=== PATIENT | male | born 1990 | race Caucasian/White ===

== ENCOUNTER 2016-08-02 17:32 | Emergency (ER) | payer OTHER ==
[2016-08-02] MEDS ORDERED: IBUPROFEN 800 MG TABLET PO ONE (18:12)
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
[2016-08-02] MEDS ORDERED: KETOROLAC TROMETHAMINE 60 MG/2 ML SDV IM ONE (19:18)
[2016-08-02 20:34] VITALS: BP 141/76
== END 2016-08-02 20:34 | disposition home or self-care (01) ==
LOC: ER 17:32
DX: M54.9 Dorsalgia, unspecified (principal); M54.2 Cervicalgia; M25.519 Pain in unspecified shoulder; V89.2XXA Person injured in unspecified motor-vehicle accident, traffic, initial encounter; F17.210 Nicotine dependence, cigarettes, uncomplicated
CPT/HCPCS: 99283; 96372; J1885

== ENCOUNTER 2017-08-16 09:42 | Emergency (ER) | payer SELFPAY ==
[2017-08-16 10:07] VITALS: BP 137/82
--- NOTE | 2017-08-16 10:40 | ER Document Report ---
ED General - General Chief Complaint: Facial Swelling Stated Complaint: SKIN CONCERN Time Seen by Provider: 08/16/17 10:35 Mode of Arrival: Ambulatory Information source: Patient Notes: Patient states that he noticed a "pimple" yesterday underneath his right nares. He states he began to "pick at it". He states when he woke up this morning he was very swollen and tender. The pain is moderate and constant. It is a burning and sharp sensation. It radiates throughout the right side of his face. It is worse when touched and better if left alone. No fevers or vomiting. No problems with breathing or swallowing. TRAVEL OUTSIDE OF THE [place] IN LAST 30 DAYS: No - Related Data Allergies/Adverse Reactions: acetaminophen [From Tylenol] Adverse Reaction (Verified 08/16/17 09:44) Past Medical History - General Information source: Patient - Social History Smoking Status: Current Every Day Smoker Frequency of alcohol use: Occasional Drug Abuse: None Family History: Reviewed & Not Pertinent, DM. denies: Arthritis, CAD, CVA, Hyperlipidemia, Hypertension, Malignancy, Thyroid Disfunction Renal/ Medical History: Denies: Hx Peritoneal Dialysis Skin Medical History: Reports Hx Cellulitis, Reports Hx MRSA Infectious Medical History: Reports: Hx MRSA - Immunizations Immunizations up to date: No Hx Diphtheria, Pertussis, Tetanus Vaccination: Yes Review of Systems - Review of Systems Constitutional: denies: Chills, Fever EENT: Tearing, Nose pain, Nose congestion. denies: Eye discharge Cardiovascular: denies: Chest pain, Palpitations Physical Exam - Vital signs Vitals: Temp Pulse Resp BP Pulse Ox 98.1 F 98 20 137/82 H 99 08/16/17 10:05 08/16/17 10:05 08/16/17 10:05 08/16/17 10:05 08/16/17 10:05 Interpretation: Normal - General General appearance: Appears well, Alert - HEENT Head: Normocephalic, Atraumatic Eyes: Normal Pupils: PERRL Nasal: Other - Patient has an adherent large crusted scab underneath the right nares. He does have induration of the right near a both interior and exterior. He also has some facial induration erythema and warmth of a surrounding immediate facial structures. The upper lip is swollen on the right. It does not appear to extend into the orbit at this time. There is no involvement of the airway. - Respiratory Respiratory status: No respiratory distress Chest status: Nontender Breath sounds: Normal Chest palpation: Normal - Cardiovascular Rhythm: Regular Heart sounds: Normal auscultation Murmur: No - Abdominal Inspection: Normal Distension: No distension Bowel sounds: Normal Tenderness: Nontender Organomegaly: No organomegaly - Back Back: Normal, Nontender - Extremities General upper extremity: Normal inspection, Nontender, Normal color, Normal ROM , Normal temperature General lower extremity: Normal inspection, Nontender, Normal color, Normal ROM , Normal temperature, Normal weight bearing. No: Alize's sign - Neurological Neuro grossly intact: Yes Cognition: Normal Orientation: AAOx4 [place] Coma Scale Eye Opening: Spontaneous [place] Coma Scale Verbal: Oriented [place] Coma Scale Motor: Obeys Commands Pal[place] Coma Scale Total: 15 Speech: Normal Motor strength normal: LUE, RUE, LLE, RLE Sensory: Normal - Psychological Associated symptoms: Normal affect, Normal mood - Skin Skin Temperature: Warm Skin Moisture: Dry Skin Color: Normal Course - Vital Signs Vital signs: Temp Pulse Resp BP Pulse Ox 98.1 F 98 20 137/82 H 99 08/16/17 10:05 08/16/17 10:05 08/16/17 10:05 08/16/17 10:05 08/16/17 10:05 Discharge - Discharge Clinical Impression: Facial abscess Condition: Stable Disposition: HOME, SELF-CARE Instructions: Abscess ([facility]), Trimethoprim-Sulfa ([facility]) Additional Instructions: Please return here in 24 to 48 hrs for a recheck. Prescriptions: Cephalexin Monohydrate [Keflex 500 mg Capsule] 500 mg PO QID 10 Days #40 capsule Sulfamethoxazole/Trimethoprim [Septra-Ds 800-160 mg Tablet] 1 tab PO BID 10 Days #20 tablet
[2017-08-16] MEDS ORDERED: CEPHALEXIN 500 MG CAPSULE PO ONE (10:56)
[2017-08-16] MEDS ORDERED: SULFAMETHOXAZOLE/TRIMETHOPRIM 800-160 MG TABLET PO ONE (10:56)
== END 2017-08-16 11:04 | disposition home or self-care (01) ==
LOC: ER 09:42
DX: L02.01 Cutaneous abscess of face (principal); F17.200 Nicotine dependence, unspecified, uncomplicated; Z88.6 Allergy status to analgesic agent; Z86.14 Personal history of Methicillin resistant Staphylococcus aureus infection
CPT/HCPCS: 99283

== ENCOUNTER 2018-06-08 06:16 | Emergency (ER) | payer OTHER ==
[2018-06-08 06:35] VITALS: BP 130/92
--- NOTE | 2018-06-08 07:02 | ER Document Report ---
ED General - General Chief Complaint: Dental Injury Stated Complaint: HEADACHE, DENTAL PROBLEM Time Seen by Provider: 06/08/18 07:01 Notes: Patient is a 27-year-old male that presents to the emergency department for chief complaint of right-sided dental pain. Patient states he has been dealing with pain in his right posterior teeth in the upper and lower mouth for the past 3 days. He states the pain is persistent and not improving, he tried taking ibuprofen without relief of his symptoms. He said decreased sleep as a result. He states he does have poor dentition, and has had multiple injured teeth in cavities over the years. He has not been able to see a dentist for this. He denies any fevers, chills, night sweats, nausea, vomiting or abdominal pain. Denies any chest pain or shortness of breath or cough. No other complaints at this time. He currently rates his pain as a 10 out of 10, describes as a constant aching sensation, worse with trying to eat. Past Medical History: Denies chronic medical conditions Past Surgical History: Hand surgery Social History: Admits to smoking cigarettes, denies alcohol or drug use. Family History: Reviewed and noncontributory for presenting illness Allergies: Reviewed, see documented allergy list. REVIEW OF SYSTEMS: Other than noted above, the 12 point review of systems was reviewed with the patient and were negative, all pertinent findings are included in the HPI. PHYSICAL EXAMINATION: Vital signs reviewed, nursing noted reviewed. GENERAL: Well-appearing, well-nourished and in no acute distress. HEAD: Atraumatic, normocephalic. EYES: Eyes appear normal, extraocular movements intact, sclera anicteric, conjunctiva are normal. ENT: nares patent, oropharynx clear without exudates. Moist mucous membranes. Multiple dental caries, there appears to be inflammation but no presence of abscess, lateral to the tooth #32, possible dental infection at that site, overall poor dentition. NECK: Normal range of motion, supple without lymphadenopathy LUNGS: Breath sounds clear to auscultation bilaterally and equal. No wheezes rales or rhonchi. HEART: Regular rate and rhythm without murmurs EXTREMITIES: Nontender, good range of motion, no pitting or edema. NEUROLOGICAL: No focal neurological deficits. Moves all extremities spontaneously Motor and sensory grossly intact on exam. PSYCH: Normal mood, normal affect. SKIN: Warm, Dry, normal turgor, no rashes or lesions noted on exposed skin TRAVEL OUTSIDE OF THE [place] IN LAST 30 DAYS: No - Related Data Allergies/Adverse Reactions: acetaminophen [From Tylenol] Adverse Reaction (Verified 06/08/18 06:46) Past Medical History - Social History Smoking Status: Current Every Day Smoker Chew tobacco use (# tins/day): No Frequency of alcohol use: Occasional Drug Abuse: None Family History: Reviewed & Not Pertinent, DM. denies: Arthritis, CAD, CVA, Hyperlipidemia, Hypertension, Malignancy, Thyroid Disfunction Patient has suicidal ideation: No Patient has homicidal ideation: No Renal/ Medical History: Denies: Hx Peritoneal Dialysis Skin Medical History: Reports Hx Cellulitis, Reports Hx MRSA Infectious Medical History: Reports: Hx MRSA - Immunizations Immunizations up to date: No Hx Diphtheria, Pertussis, Tetanus Vaccination: Yes Physical Exam - Vital signs Vitals: Temp Pulse Resp BP Pulse Ox 97.8 F 100 16 130/92 H 98 06/08/18 06:31 06/08/18 06:31 06/08/18 06:31 06/08/18 06:31 06/08/18 06:31 Course - Re-evaluation Re-evalutation: PROCEDURE: Inferior and superior alveolar nerve blocks, after obtaining verbal consent and explaining the risks and benefits of the procedure, patient agreed to proceed, using a mixture of 2% lidocaine with epinephrine, and 0.5% bupivacaine, the trigone space was identified for the inferior alveolar nerve block, and 4 cc of this mixture was injected, again this was repeated, for the superior alveolar nerve, posteriorly, patient tolerated procedure well, and good anesthesia was obtained. Patient will be discharged home, with a prescription for penicillin, and naproxen, and advised to follow-up with a dentist, to obtain definitive care for his dental injury, and infection. - Vital Signs Vital signs: Temp Pulse Resp BP Pulse Ox 97.8 F 100 16 130/92 H 98 06/08/18 06:31 06/08/18 06:31 06/08/18 06:31 06/08/18 06:31 06/08/18 06:31 Discharge - Discharge Clinical Impression: Dental infection, Pain, dental Condition: Stable Disposition: HOME, SELF-CARE Instructions: Dental Infection or Abscess ([facility]) Additional Instructions: Please take the complete course of antibiotics, and take the naproxen twice daily, and please follow-up with a dentist as soon as possible to have further evaluation. Prescriptions: Naproxen [Naprosyn] 500 mg PO BID PRN #30 tablet PRN Reason: dental pain Penicillin V Potassium [Penicillin Vk 500 mg Tablet] 500 mg PO QID #28 tablet Referrals: [facility] [Provider Group] - Follow up tomorrow Dental [facility] [Provider Group] - Follow up tomorrow
[2018-06-08] MEDS ORDERED: LIDOCAINE 2%/EPINEPHRINE INJ 20 ML VIAL INJ ONE (07:30)
[2018-06-08] MEDS ORDERED: BUPIVACAINE HCL 0.5 % INJ/PF 30 ML SDV INJ ONE (07:30)
[2018-06-08] MEDS ORDERED: NAPROXEN 250 MG TABLET PO ONE (07:31)
== END 2018-06-08 08:35 | disposition home or self-care (01) ==
LOC: ER 06:16
DX: K04.7 Periapical abscess without sinus (principal); R51 Headache; F17.210 Nicotine dependence, cigarettes, uncomplicated; Z86.14 Personal history of Methicillin resistant Staphylococcus aureus infection
CPT/HCPCS: 99283; 64400; J3490 ×2

== ENCOUNTER 2018-06-14 22:57 | Emergency (ER) | payer SELFPAY ==
[2018-06-14 23:03] VITALS: BP 150/79
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
[2018-06-15] MEDS ORDERED: CEPHALEXIN 500 MG CAPSULE PO ONE (00:33)
[2018-06-15] MEDS ORDERED: SULFAMETHOXAZOLE/TRIMETHOPRIM 800-160 MG TABLET PO ONE (00:33)
== END 2018-06-15 01:18 | disposition home or self-care (01) ==
LOC: ER 22:57
DX: L03.211 Cellulitis of face (principal); S01.401A Unspecified open wound of right cheek and temporomandibular area, initial encounter; X58.XXXA Exposure to other specified factors, initial encounter; Z86.14 Personal history of Methicillin resistant Staphylococcus aureus infection
CPT/HCPCS: 99282

== ENCOUNTER 2018-07-28 22:57 | Emergency (ER) | payer SELFPAY ==
[2018-07-28 23:18] VITALS: BP 138/87
== END 2018-07-29 01:13 | disposition left against medical advice (07) ==
LOC: ER 22:57
DX: Z53.21 Procedure and treatment not carried out due to patient leaving prior to being seen by health care provider (principal)

== ENCOUNTER 2018-07-29 15:38 | Emergency (ER) | payer SELFPAY ==
[2018-07-29 15:45] VITALS: BP 144/78
--- NOTE | 2018-07-29 16:49 | ER Document Report ---
Addendum entered and electronically signed by FELIPE BRAY PA-C 07/29/18 18:30: Procedures - Incision and Drainage Left Proximal Finger 2nd digit Type: Simple Anesthetic type: 2% Lidocaine mL's of anesthetic: 5 Blade size: 11 I&D procedure: Shurclens applied Incision Method: Incision made by scalpel Original Note: HPI - HPI Patient complains to provider of: bite/abscess Time Seen by Provider: 07/29/18 16:19 Pain Level: 5 Context: 20-year-old male with no past medical history presents to the emergency department for concern for a bug bite on his PIP of his left index finger after moving some items in his garage 3 days ago. He was here last night but left without being seen due to concern for being around children and concern for being infected, this is per patient. Denies fever, complains of mild headache, states he felt hot but often does run hot. Patient said he wanted to see how it progressed over the last day or 2 but is gotten worse causing him to seek care. Patient states he still has full range of motion but his left index fingertip is getting numb. Patient has no other complaints - REPRODUCTIVE Reproductive: DENIES: : Past Medical History - General Information source: Patient - Social History Smoking Status: Former Smoker Family History: Reviewed & Not Pertinent, DM Renal/ Medical History: Denies: Hx Peritoneal Dialysis Skin Medical History: Reports Hx Cellulitis, Reports Hx MRSA Infectious Medical History: Reports: Hx MRSA - Immunizations Immunizations up to date: No Hx Diphtheria, Pertussis, Tetanus Vaccination: Yes Vertical Provider Document - CONSTITUTIONAL Agree With Documented VS: Yes - INFECTION CONTROL TRAVEL OUTSIDE OF THE [place] IN LAST 30 DAYS: No - HEENT HEENT: Atraumatic, Normocephalic - NECK Neck: Normal Inspection, Supple - RESPIRATORY Respiratory: Breath Sounds Normal - CARDIOVASCULAR Cardiovascular: Regular Rate, Regular Rhythm - NEURO Level of Consciousness: Awake, Alert, Appropriate Motor/Sensory: No Sensory Deficit - Patient complaining of numbness in left index finger - DERM Integumentary: Warm, Dry, Abscess - Red erythematous area with point of fluctuance consistent with a bug bite on left dorsal PIP index finger. Acute tenderness to palpation that extends to the dorsal aspect of his hand Course - Re-evaluation Re-evalutation: 01/20/19 16:46 Well-appearing 20-year-old male presents with concern for bug bite on left dorsal aspect of PIP index finger. There is edema, erythema and an area of fluctuance. Plan to discuss with a colleague for further disposition. 07/29/18 17:[address] tremaine stanton. Her recommendation was to perform a digital block and then 10 to the area where the abscess/cellulitis was, then take an 11 scalpel blade and make a superficial longitudinal incision over the area to ensure that it does not close back up. Also discussion for antibiotic coverage was that doxycycline covers both MRSA and MSSA and that would be appropriate for this patient. Gave the patient a coupon for doxycycline at [facility] to assist with his costs. Marked skin with a skin marker and gave patient instructions on how to watch course of the wound. Used an 11 blade and opened up the wound patient tolerated the procedure well. Patient tolerated the procedure well. Safe to discharge with close return instructions - Vital Signs Vital signs: Temp Pulse Resp BP Pulse Ox 97.5 F 105 H 15 144/78 H 99 07/29/18 15:43 07/29/18 15:43 07/29/18 15:43 07/29/18 15:43 07/29/18 15:43 Discharge - Discharge Clinical Impression: Cellulitis and abscess of finger, unspecified Condition: Good Disposition: HOME, SELF-CARE Instructions: Abscess ([facility]), MRSA Cellulitis ([facility]), Post Incision and Drainage Additional Instructions: You were seen in the emergency department this afternoon for some type of a bite that has turned into cellulitis. Because there is the spot where we were able to get some drainage we have opened it up. I have given you a coupon for your doxycycline that you need to take twice a day for 7 days. We will also marked the site with a skin marker and if it continues to expand or you notice red streaks going up your arm please immediately return to the emergency department. Also if you develop fevers, chills or any other infectious symptoms please immediately return to the emergency department. Prescriptions: Doxycycline Hyclate 100 mg PO BID #14 capsule
[2018-07-29] MEDS ORDERED: CEPHALEXIN 500 MG CAPSULE PO ONE (17:08)
[2018-07-29] MEDS ORDERED: SULFAMETHOXAZOLE/TRIMETHOPRIM 800-160 MG TABLET PO ONE (17:08)
[2018-07-29] MEDS ORDERED: DOXYCYCLINE HYCLATE 100 MG TABLET PO ONE (17:25)
[2018-07-29] MEDS ORDERED: LIDOCAINE 1% INJ (10 MG/ML) 10 ML MDV INJ ONE (17:31)
== END 2018-07-29 18:30 | disposition home or self-care (01) ==
LOC: ER 15:38
DX: L03.012 Cellulitis of left finger (principal); L02.512 Cutaneous abscess of left hand; Z86.14 Personal history of Methicillin resistant Staphylococcus aureus infection
CPT/HCPCS: 87070; 87077; 87186; 87205; 99282

== ENCOUNTER 2018-11-27 08:57 | Emergency (ER) | payer SELFPAY ==
[2018-11-27] MEDS ORDERED: CEPHALEXIN 500 MG CAPSULE PO ONE (10:22)
[2018-11-27] MEDS ORDERED: LIDOCAINE 1%/EPINEPHRINE INJ 20 ML VIAL INJ ONE (10:22)
[2018-11-27] MEDS ORDERED: SULFAMETHOXAZOLE/TRIMETHOPRIM 800-160 MG TABLET PO ONE (10:22)
--- NOTE | 2018-11-27 10:30 | ER Document Report ---
ED Skin Rash/Insect Bite/Abscs - General Chief Complaint: Abscess Stated Complaint: POSSIBLE FACIAL INFECTION Time Seen by Provider: 11/27/18 10:21 Information source: Patient Notes: 28-year-old male who presents today with what he states is the onset around 1 month of some increased lesions to his left side of his face as well as now scattered to his legs. No fevers or vomiting. History of skin infections in the past. Last skin infection according to patient is around 1 year ago. It appears that the patient actually had one more recent, being an abscess of the finger according to medical records. Patient believes this current incident is was secondary to an ingrown hair to the left side of his face. TRAVEL OUTSIDE OF THE [place] IN LAST 30 DAYS: No - Related Data Allergies/Adverse Reactions: acetaminophen [From Tylenol] Adverse Reaction (Verified 11/27/18 08:58) Past Medical History - Social History Smoking Status: Current Every Day Smoker Frequency of alcohol use: None Drug Abuse: Marijuana Family History: Reviewed & Not Pertinent, DM Patient has suicidal ideation: No Patient has homicidal ideation: No Renal/ Medical History: Denies: Hx Peritoneal Dialysis Skin Medical History: Reports Hx Cellulitis, Reports Hx MRSA Infectious Medical History: Reports: Hx MRSA - Immunizations Immunizations up to date: No Hx Diphtheria, Pertussis, Tetanus Vaccination: Yes Physical Exam - Vital signs Vitals: Temp Pulse Resp BP Pulse Ox 98.3 F 108 H 18 154/77 H 98 11/27/18 09:02 11/27/18 09:02 11/27/18 09:02 11/27/18 09:02 11/27/18 09:02 Notes: Reviewed vital signs and nursing note as charted by RN. CONSTITUTIONAL: Alert and oriented and responds appropriately to questions. Well-appearing; well-nourished HEAD: Normocephalic; atraumatic ENT: Patient has an area of fluctuance tenderness and swelling to the left lateral temporal region consistent with an abscess. He has another denuded skin lesion to the left lower cheek that is nonfluctuant with no surrounding erythema. No intraoral lesions present NECK: Supple without meningismus; non-tender; no cervical lymphadenopathy, no masses EXT: Patient has no obvious track collazo. Patient has some scattered lesions without fluctuance or surrounding erythema to the lower extremities. No palmar or sole lesions present. SKIN: See above Course - Re-evaluation Re-evalutation: 11/27/18 10:29 Given the history and physical examination, I will perform an incision and drainage of the left temporal abscess-like lesion. Given the patient scattered lesions to the upper and lower extremities, I will order basic CBC to make sure that the patient does not have any obvious lymphopenia or neutropenia. Otherwise, I will start the patient on Keflex and Bactrim with strict return precautions. Patient states he has been free of injecting heroin for the last 5 years. I will attempt to follow-up the patient with a local primary care physician office that does not require insurance. 11/27/18 11:23 White blood cell count is recorded. No obvious leukopenia or neutropenia. I&D performed. Patient will be discharged home with strict return precautions and antibiotic prescriptions. - Vital Signs Vital signs: Temp Pulse Resp BP Pulse Ox 98.3 F 108 H 18 154/77 H 98 11/27/18 09:02 11/27/18 09:02 11/27/18 09:02 11/27/18 09:02 11/27/18 09:02 - Laboratory Result Diagrams: 11/27/18 10:48 11/27/18 10:48 Laboratory results interpreted by me: 11/27/18 10:48 RDW 14.2 H Procedures - Incision and Drainage Left Face Type: Simple Anesthetic type: 1% Lidocaine w/epi Blade size: 11 I&D procedure: Betadine prep applied Incision Method: Incision made by scalpel Discharge - Discharge Clinical Impression: Facial abscess, Cellulitis of skin Condition: Good Disposition: HOME, SELF-CARE Instructions: Abscess ([facility]), Cephalexin ([facility]), MRSA Cellulitis ([facility]), Post Incision and Drainage Additional Instructions: Come back immediately with any increased skin rash, pain, swelling, fever, vomiting, or any other acute problems. Please take the antibiotics as prescribed and follow-up with your primary doctor or the clinic we have provided. Prescriptions: Cephalexin Monohydrate [Keflex 500 mg Capsule] 500 mg PO TID 10 Days #30 capsule Sulfamethoxazole/Trimethoprim [Bactrim Ds Tablet] 2 each PO BID 10 Days #40 tablet
[2018-11-27 11:09] LABS: ABSOLUTE EOSINOPHILS # (AUTO) 0.1 10^3/uL (0.0-0.6); ABSOLUTE LYMPHOCYTES (AUTO) 2.3 10^3/uL (0.5-4.7); ABSOLUTE MONOCYTES (AUTO) 0.8 10^3/uL (0.1-1.4); ABSOLUTE NEUT (AUTO) 4.8 10^3/uL (1.7-8.2); BASOPHILS % (AUTO) 0.5 % (0-2); EOSINOPHILS % (AUTO) 1.7 % (0-6); HEMATOCRIT 43.5 % (37.9-51.0); HEMOGLOBIN 14.5 g/dL (13.5-17.0); LYMPHOCYTES % (AUTO) 28.2 % (13-45); MEAN CORPUSCULAR HEMOGLOBIN 27.8 pg (27.0-33.4); MEAN CORPUSCULAR HGB CONC 33.3 g/dL (32.0-36.0); MEAN CORPUSCULAR VOLUME 83 fl (80-97); MONOCYTES % (AUTO) 9.4 % (3-13); PLATELET COUNT 391 10^3/uL (150-450); RED BLOOD COUNT 5.21 10^6/uL (4.35-5.55); RED CELL DISTRIBUTION WIDTH 14.2 % (11.5-14.0); SEGMENTED NEUTROPHILS % (AUTO) 60.2 % (42-78); TOTAL CELLS COUNTED % (AUTO) 100 %
[2018-11-27 11:33] LABS: ANION GAP 8 (5-19); BLOOD UREA NITROGEN 13 mg/dL (7-20); CALCIUM 9.8 mg/dL (8.4-10.2); CARBON DIOXIDE 29 mmol/L (22-30); CHLORIDE 105 mmol/L (98-107); GLUCOSE 77 mg/dL (75-110); POTASSIUM 4.4 mmol/L (3.6-5.0); SODIUM 141.6 mmol/L (137-145)
[2018-11-27 11:47] VITALS: BP 141/79
== END 2018-11-27 11:52 | disposition home or self-care (01) ==
LOC: ER 08:57
DX: L02.01 Cutaneous abscess of face (principal); F17.200 Nicotine dependence, unspecified, uncomplicated; Z88.6 Allergy status to analgesic agent; Z86.14 Personal history of Methicillin resistant Staphylococcus aureus infection
CPT/HCPCS: 99283; 36415; 85025; 80048; 10060; J3490

== ENCOUNTER 2019-02-26 13:07 | Emergency (ER) | payer OTHER ==
[2019-02-26] MEDS ORDERED: OXYCODONE HCL IR 5 MG TABLET PO ONE (14:25)
[2019-02-26] MEDS ORDERED: IBUPROFEN 600 MG TABLET PO ONE (14:25)
[2019-02-26] MEDS ORDERED: SILVER SULFADIAZINE 1% CREAM 400 GM TP ONE (14:26)
[2019-02-26] MEDS ORDERED: ONDANSETRON HCL INJ/PF 4 MG/2 ML SDV IV ONE (14:32)
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
[2019-02-26 16:52] VITALS: BP 130/78
== END 2019-02-26 16:50 | disposition home or self-care (01) ==
LOC: ER 13:07
DX: S40.212A Abrasion of left shoulder, initial encounter (principal); S40.812A Abrasion of left upper arm, initial encounter; M25.512 Pain in left shoulder; M25.552 Pain in left hip; M79.602 Pain in left arm; M25.562 Pain in left knee; V23.4XXA Motorcycle driver injured in collision with car, pick-up truck or van in traffic accident, initial encounter; T22.00XA Burn of unspecified degree of shoulder and upper limb, except wrist and hand, unspecified site, initial encounter; X08.8XXA Exposure to other specified smoke, fire and flames, initial encounter; R09.89 Other specified symptoms and signs involving the circulatory and respiratory systems; F17.200 Nicotine dependence, unspecified, uncomplicated; Z98.890 Other specified postprocedural states; Z86.14 Personal history of Methicillin resistant Staphylococcus aureus infection
CPT/HCPCS: 73552; 73090; 73060; 73564; 73030; 71260; 74177; J3490; J2405; 96374; 99284

== ENCOUNTER 2019-07-13 04:50 | Emergency (ER) | payer SELFPAY ==
[2019-07-13 07:34] LABS: ALBUMIN 3.9 g/dL (3.5-5.0); ALKALINE PHOSPHATASE 84 U/L (38-126); ANION GAP 9 (5-19); ASPARTATE AMINO TRANSFERASE 20 U/L (17-59); BILIRUBIN,DIRECT 0.2 mg/dL (0.0-0.4); BILIRUBIN,TOTAL 0.4 mg/dL (0.2-1.3); BLOOD UREA NITROGEN 11 mg/dL (7-20); CALCIUM 9.4 mg/dL (8.4-10.2); CARBON DIOXIDE 28 mmol/L (22-30); CHLORIDE 103 mmol/L (98-107); GLUCOSE 99 mg/dL (75-110); POTASSIUM 4.4 mmol/L (3.6-5.0); TOTAL PROTEIN 7.3 g/dL (6.3-8.2)
[2019-07-13 07:39] LABS: HEMATOCRIT 40.4 % (37.9-51.0); HEMOGLOBIN 13.5 g/dL (13.5-17.0); MEAN CORPUSCULAR HEMOGLOBIN 28.1 pg (27.0-33.4); MEAN CORPUSCULAR HGB CONC 33.4 g/dL (32.0-36.0); MEAN CORPUSCULAR VOLUME 84 fl (80-97); PLATELET COUNT 410 10^3/uL (150-450); RED CELL DISTRIBUTION WIDTH 14.6 % (11.5-14.0); WHITE BLOOD COUNT 14.4 10^3/uL (4.0-10.5)
[2019-07-13 08:10] LABS: ABSOLUTE LYMPHOCYTES# (MANUAL) 4.6 10^3/uL (0.5-4.7); ABSOLUTE MONOCYTES # (MANUAL) 0.7 10^3/uL (0.1-1.4); BAND NEUTROPHILS % (MANUAL) 3 % (3-5); BASOPHILS % (MANUAL) 0 % (0-2); EOSINOPHILS % (MANUAL) 2 % (0-6); LYMPHOCYTES % (MANUAL) 32 % (13-45); MONOCYTES % (MANUAL) 5 % (3-13); SEGMENTED NEUTROPHILS % (MAN) 58 % (42-78); TOTAL CELLS COUNTED 100
[2019-07-13 08:11] LABS: ANISOCYTOSIS SLIGHT; PLATELET COMMENT ADEQUATE
[2019-07-13 08:45] LABS: APPEARANCE,URINE CLEAR; BILIRUBIN,URINE NEGATIVE (NEGATIVE); COLOR,URINE YELLOW; GLUCOSE, URINE NEGATIVE (NEGATIVE); KETONES,URINE NEGATIVE (NEGATIVE); LEUKOCYTE ESTERASE,URINE NEGATIVE (NEGATIVE); NITRITE,URINE NEGATIVE (NEGATIVE); PROTEIN,URINE NEGATIVE (NEGATIVE); URINE SPECIFIC GRAVITY 1.021; UROBILINOGEN,URINE NEGATIVE mg/dL (<2.0)
--- NOTE | 2019-07-13 10:52 | ER Document Report ---
ED Medical Screen (RME) - General Chief Complaint: Groin Pain Stated Complaint: LOWER ABDOMINAL PAIN TRAVEL OUTSIDE OF THE [place] IN LAST 30 DAYS: No - HPI Notes: 07/13/19 10:52 Patient is a 29-year-old male no significant past medical history presents complaining of possible infection/abscess to his left groin/inguinal area for t he past 3 to 4 days that is painful. No fever. I have treated and performed a rapid initial assessment of this patient. A comprehensive ED assessment and evaluation of the patient, analysis of test results and completion of medical decision making process will be conducted by additional ED providers. PHYSICAL EXAMINATION: GENERAL: Well-appearing, well-nourished and in no acute distress. A&Ox4. Answers questions appropriately. Left inguinal area: There is large area of erythema, induration, swelling, and tenderness noted with questionable abscess. - Related Data Allergies/Adverse Reactions: acetaminophen [From Tylenol] Adverse Reaction (Verified 07/13/19 08:23) Past Medical History - Social History Drug Abuse: Marijuana Renal/ Medical History: Denies: Hx Peritoneal Dialysis Skin Medical History: Reports Hx Cellulitis, Reports Hx MRSA Psychiatric Medical History: Reports: Hx Bipolar Disorder Infectious Medical History: Reports: Hx MRSA Past Surgical History: Reports: Hx Orthopedic Surgery - Left hand - Immunizations Immunizations up to date: No Hx Diphtheria, Pertussis, Tetanus Vaccination: Yes Physical Exam - Vital signs Vitals: Temp Pulse Resp BP Pulse Ox 97.3 F 112 H 16 140/81 H 99 07/13/19 04:54 07/13/19 04:54 07/13/19 04:54 07/13/19 04:54 07/13/19 04:54 Course - Vital Signs Vital signs: Temp Pulse Resp BP Pulse Ox 97.3 F 112 H 16 140/81 H 99 07/13/19 04:54 07/13/19 04:54 07/13/19 04:54 07/13/19 04:54 07/13/19 04:54 - Laboratory Result Diagrams: 07/13/19 07:00 07/13/19 07:00 Laboratory results interpreted by me: 07/13/19 07:00 WBC 14.4 H RDW 14.6 H Abs Neuts (Manual) 8.8 H
[2019-07-13] MEDS ORDERED: LIDOCAINE 2% INJ (20 MG/ML) 20 ML MDV INJ ONE (11:12)
--- NOTE | 2019-07-13 11:53 | ER Document Report ---
Entered by ERICA VELÁZQUEZ SCRIBE 07/13/19 1059 Acting as scribe for:MENG LOPEZ IV, MD ED GI/ - General Chief Complaint: Groin Pain Stated Complaint: LOWER ABDOMINAL PAIN Mode of Arrival: Ambulatory Information source: Patient Notes: This 29 year old male patient presents to the emergency department today with complaints of an area of swelling, induration, erythema, and pain to his left groin. Patient states he has not seen any discharge from this area. TRAVEL OUTSIDE OF THE [place] IN LAST 30 DAYS: No - Related Data Allergies/Adverse Reactions: acetaminophen [From Tylenol] Adverse Reaction (Verified 07/13/19 08:23) Past Medical History - General Information source: Patient - Social History Smoking Status: Current Some Day Smoker Cigarette use (# per day): Yes Drug Abuse: Marijuana Family History: Reviewed & Not Pertinent, DM Patient has suicidal ideation: No Patient has homicidal ideation: No Skin Medical History: Reports Hx Cellulitis, Reports Hx MRSA Psychiatric Medical History: Reports: Hx Bipolar Disorder Infectious Medical History: Reports: Hx MRSA Past Surgical History: Reports: Hx Orthopedic Surgery - Left hand - Immunizations Immunizations up to date: No Hx Diphtheria, Pertussis, Tetanus Vaccination: Yes Review of Systems - Review of Systems Constitutional: No symptoms reported EENT: No symptoms reported Cardiovascular: No symptoms reported Respiratory: No symptoms reported Gastrointestinal: No symptoms reported Genitourinary: No symptoms reported Male Genitourinary: No symptoms reported Musculoskeletal: No symptoms reported Skin: See HPI, Other - large swollen tender area to left groin Hematologic/Lymphatic: No symptoms reported Neurological/Psychological: No symptoms reported -: Yes All other systems reviewed and negative Physical Exam - Vital signs Vitals: Temp Pulse Resp BP Pulse Ox 97.3 F 112 H 16 140/81 H 99 07/13/19 04:54 07/13/19 04:54 07/13/19 04:54 07/13/19 04:54 07/13/19 04:54 - Notes Notes: Physical Exam: General: Alert, appears uncomfortable. HEENT: Normocephalic. Atraumatic. PERRL. Extraocular movements intact. Oropharynx clear. Neck: Supple. Non-tender. Respiratory: No respiratory distress. Clear and equal breath sounds bilaterally. Cardiovascular: Regular rate and rhythm. Abdominal: 4cm area of swelling, induration, erythema, and tenderness with palpation to left inguinal area. No distension. Normal Bowel Sounds. Back: No gross abnormalities. Extremities: Moves all four extremities. Upper extremities: Normal inspection. Normal ROM. Lower extremities: Normal inspection. No edema. Normal ROM. Neurological: Normal cognition. AAOx4. Normal speech. Psychological: Normal affect. Normal Mood. Skin: Warm. Dry. Normal color. Course - Re-evaluation Re-evalutation: 07/13/19 11:55 Patient was instructed about his diagnosis. All questions were answered. Patient was instructed to return to the emergency department if his symptoms worsen despite taking antibiotics as prescribed. - Vital Signs Vital signs: Temp Pulse Resp BP Pulse Ox 97.3 F 112 H 16 140/81 H 99 07/13/19 04:54 07/13/19 04:54 07/13/19 04:54 07/13/19 04:54 07/13/19 04:54 - Laboratory Result Diagrams: 07/13/19 07:00 07/13/19 07:00 Laboratory results interpreted by me: 07/13/19 07:00 WBC 14.4 H RDW 14.6 H Abs Neuts (Manual) 8.8 H Procedures - Incision and Drainage Left Groin Time completed: 11:54 Type: Simple Anesthetic type: 2% Lidocaine mL's of anesthetic: 5 Blade size: 11 I&D procedure: Chlorprep applied Incision Method: Incision made by scalpel Amount/type of drainage: 0 Notes: 07/13/19 11:54 3 stab incisions with a #11 scalpel were made. No purulent discharge returned. Only scant amount of blood was noted. Patient was informed that infection may not have consolidated into an abscess and may be a cellulitis at this time. Discharge - Discharge Clinical Impression: Cellulitis Qualifiers: Site of cellulitis: unspecified site Qualified Code(s): L03.90 - Cellulitis, unspecified Condition: Good Disposition: HOME, SELF-CARE Additional Instructions: Return to the Emergency Department without delay if any worse. Cellulitis You have an infection of your skin and underlying soft tissues called cellulitis. This is due to bacteria, which can enter through any break in the skin, or even through an irritated hair follicle. Untreated, cellulitis will usually worsen. Antibiotics are required. Usually, warm packs or warm soaks, and elevation of the infected area are recommended. You should start getting better within 24 to 36 hours. Most infections respond quickly to the right medication. Follow-up care is important, however, to check for abscess (boil) formation, unsuspected foreign body, or resistant infection. If you develop fever, chills, or if the area of infection is becoming rapidly more swollen or painful, call the doctor at once. HOME CARE INSTRUCTIONS & INFORMATION: Thank you for choosing us for your medical needs. We hope you're satisfied with the care you received. After you leave, you must properly care for your problem and, at the same time, observe its progress. Any condition can change. Some illnesses can change rapidly over hours or days. If your condition worsens, return to the Emergency Department or see your physician promptly. ABOUT YOUR X-RAYS AND EKG'S: If you had an EKG or X-rays taken, they have been read by the Emergency Physician. The X-rays and EKG's will also be read by a Radiologist or [employer]er within 24 hours. If discrepancies are noted, you will be notified by telephone. Please be certain the ED has a correct telephone number & address where you can be reached. Also, realize that some fractures or abnormalities do not show up on initial X-rays. If your symptoms continue, see your physician. ABOUT YOUR LABORATORY TEST: If you had laboratory tests, the results have been reviewed by the Emergency Physician. Some test results (for example cultures) may not be available for several days. You will be contacted if any test result shows you need additional treatment. Please be certain the ED has a correct telephone number and address where you can be reached. ABOUT YOUR MEDICATIONS: You will receive instructions on how to take your medicine on the prescription label you receive. Additional information may be provided by the Pharmacy. If you have questions afterwards, call the ED for clarification or further instructions. Some prescribed medications may cause drowsiness. Do not perform tasks such as driving a car or operating machinery without consulting your Pharmacist. If you feel you need a refill of pain medication, your condition will need re-evaluation. Please do not call for a refill of any medication. ABOUT YOUR SIGNATURE: Signature of this document acknowledges to followin. Understanding that you received emergency treatment and that you may be released before al medical problems are known or treated. Please be certain the ED has a correct phone number & address where you can be reached. 2. Acknowledgement that you will arrange for follow-up care as recommended. 3. Authorization for the Emergency Physician to provide information to your follow-up Physician in order to maximize your care. AT ANY TIME, IF YOUR SYMPTOMS CHANGE SIGNIFICANTLY OR WORSEN OR YOU DEVELOP NEW SYMPTOMS, RETURN TO THE EMERGENCY DEPARTMENT IMMEDIATELY FOR RE-EVALUATION. OUR GOAL IS TO PROVIDE EXCELLENT MEDICAL CARE! WE HOPE THAT WE HAVE MET YOUR EXPECTATIONS DURING YOUR EMERGENCY DEPARTMENT VISIT AND THAT YOU FEEL YOU HAVE RECEIVED EXCELLENT CARE! Prescriptions: Oxycodone HCl [Oxaydo] 5 mg PO Q6HP PRN #20 tablet.orl PRN Reason: pain Clindamycin HCl [Cleocin 150 mg Capsule] 450 mg PO TID #63 capsule Forms: Return to Work I personally performed the services described in the documentation, reviewed and edited the documentation which was dictated to the scribe in my presence, and it accurately records my words and actions.
[2019-07-13] MEDS ORDERED: CLINDAMYCIN HCL 150 MG CAPSULE PO ONE (12:01)
[2019-07-13] MEDS ORDERED: OXYCODONE HCL IR 5 MG TABLET PO ONE (12:02)
[2019-07-13 12:25] VITALS: BP 154/80
== END 2019-07-13 12:23 | disposition home or self-care (01) ==
LOC: ER 04:50
PROC: 0H97XZZ Drainage of Abdomen Skin, External Approach (ICD-10-PCS; principal; 2019-07-13)
DX: L03.314 Cellulitis of groin (principal); R10.30 Lower abdominal pain, unspecified; R10.32 Left lower quadrant pain; F17.210 Nicotine dependence, cigarettes, uncomplicated; Z86.14 Personal history of Methicillin resistant Staphylococcus aureus infection
CPT/HCPCS: 99283; 36415; 83690; 85025; 80053; 81001; 10060; J3490